=== PATIENT | male | born 1960 | race Caucasian/White ===

== ENCOUNTER 2016-11-29 09:49 | Day surgery (SDC) | payer MEDICAID ==
[2016-11-26 09:46] VITALS: BMI 28.0
[~2016-11-29 09:49] MED LIST: LACTATED RINGERS 1,000 ML IV SCH; LIDOCAINE 1% 20 ML VIAL (10MG/ML) FOR IV START INTRADERMA PRN
[2016-11-29 10:05] VITALS: RESP 18
[2016-11-29] MEDS ORDERED: LIDOCAINE 1% 20 ML VIAL (10MG/ML) FOR IV START INTRADERMA ONE (10:12)
[2016-11-29] MEDS ORDERED: PROPOFOL 10 MG/ML 20 ML VIAL IV ONE (10:38)
[2016-11-29] MEDS ORDERED: LIDOCAINE 1% INJ 10MG/ML (20 ML MDV) ONE (10:38)
--- NOTE | 2016-11-29 10:38 | P.GSHP ---
History of Present Illness H&P Date: 11/29/16 Chief Complaint: Screening colonoscopy This a 56-year-old male referred from Mary Ta PA-C. Patient rents today for screening colonoscopy. He denies a significant GI complaints. - Constitutional Constitutional: Reports as per HPI Past Medical History Past Medical History: No Reported History History of Any Multi-Drug Resistant Organisms: None Reported Past Surgical History: No Surgical Hx Reported Past Anesthesia/Blood Transfusion Reactions: No Reported Reaction Additional Past Anesthesia/Blood Transfusion Reaction / Comment(s): never has had general anesthesia or blood transfusion Smoking Status: Current every day smoker Past Alcohol Use History: Occasional Additional Past Alcohol Use History / Comment(s): started smoking early 20's, spouse says once and awhile Past Drug Use History: None Reported - Past Family History Mother Additional Family Medical History / Comment(s): heart problems Father Additional Family Medical History / Comment(s): in [facility] Medications and Allergies Home Medications Medication Instructions Recorded Confirmed Type Cyanocobalamin (Vitamin B-12) 1,000 mcg PO DAILY 11/26/16 11/26/16 History [Vitamin B-12] Multivitamins, Thera [Multivitamin] 1 tab PO DAILY 11/26/16 11/26/16 History Allergies Allergy/AdvReac Type Severity Reaction Status Date / Time No Known Allergies Allergy Unverified 11/26/16 09:39 Surgical - Exam Vital Signs Temp Pulse Resp BP Pulse Ox 97. F L 76 18 125/78 95 11/29/16 10:04 11/29/16 10:04 11/29/16 10:04 11/29/16 10:04 11/29/16 10:04 - General well developed, no distress - Eyes PERRL - ENT normal pinna - Neck no masses - Respiratory normal expansion - Cardiovascular Rhythm: regular - Abdomen Abdomen: soft, non tender Assessment and Plan Plan: We'll perform screening colonoscopy.
--- NOTE | 2016-11-29 10:50 | P.OP ---
Date of Procedure: 11/29/16 Preoperative Diagnosis: Screening colonoscopy Postoperative Diagnosis: Thrombosed external hemorrhoid Procedure(s) Performed: Colonoscopy Anesthesia: MAC Surgeon: Charan Bearden Pathology: none sent Condition: stable Disposition: PACU Description of Procedure: The patient's placed on the endoscopy table in the lateral position. He received IV sedation. Digital rectal exam was performed which revealed thrombosed external hemorrhoids. There was a 3 cm thrombosed external hemorrhoids. The prostate was symmetric without nodules. The flexible colonoscope was then placed patient anus passed throughout the entire colon. The ileocecal valve was visualized. The cecum, ascending and transverse colon appeared normal. In the descending and sigmoid colon there were no polyps or tumors seen there was no significant diverticulosis. Scope was then brought back the rectum and this appeared normal. Scope was then withdrawn and in the anus there was some minimal internal hemorrhoids and the thrombosed external hemorrhoids were visualized again.
[2016-11-29 11:17] VITALS: BP 120/79; PULSE 59
== END 2016-11-29 11:32 | disposition home or self-care (01) ==
LOC: ORWHC2ENDO 09:49
PROVIDERS: ATTEND Surgery
DX: Z12.11 Encounter for screening for malignant neoplasm of colon (principal); K64.5 Perianal venous thrombosis; K64.8 Other hemorrhoids; E78.5 Hyperlipidemia, unspecified; F32.9 Major depressive disorder, single episode, unspecified; F17.200 Nicotine dependence, unspecified, uncomplicated; Z79.899 Other long term (current) drug therapy
CPT/HCPCS: J2001; J2704; G0121; 45378